=== PATIENT | female | born 1970 | race Caucasian/White ===

== ENCOUNTER 2017-04-11 15:08 | Emergency (ER) | payer OTHER ==
[~2017-04-11] VITALS: Ht 172.7 cm; Wt 116.3 kg
[~2017-04-11 15:08] MED LIST: CLIN150 PO; SULF-154 PO
[2017-04-11 15:12] VITALS: BP 146/96; PULSE 98; RESP 16; TEMP 97.7; O2SAT 99
--- NOTE | 2017-04-11 15:42 | PD ---
HPI Chief Complaint: Numbness/Tingling Time Seen by Provider: 15:20 Travel History International Travel<30 days: No Contact w/Intl Traveler<30days: No Traveled to known affect area: No History of Present Illness HPI This is a 47-year-old female who presents to the emergency department with several days of lightheadedness, feeling not herself, feeling a little bit like she is going to pass out worse with walking. She also reports that for the past 2 weeks the toes on her left foot on the bottom of her foot have been intermittently numb and today she woke up and numbness has been constant. She' s not had any weakness. She does have a dull headache. She denies any chest pain or trouble breathing. She is otherwise healthy. PFSH Past Medical History Hx Anticoagulant Therapy: No Diabetes: No Diminished Hearing: No Gastrointestinal Disorders: Yes (R/O ULCERATIVE COLITIS) Tetanus Vaccination: < 5 Years Influenza Vaccination: No ?: Not : 3 Para: 3 Past Surgical History Appendectomy: Yes (1989) Hysterectomy: Yes Tonsillectomy: Yes Social History Alcohol Use: No Tobacco Use: No Substance Use: No Allergies-Medications (Allergen,Severity, Reaction): Coded Allergies: No Known Allergies (Unverified , 04/11/17) Reported Meds & Prescriptions Reported Meds & Active Scripts Active Cleocin (Clindamycin HCl) 150 Mg Cap 300 Mg PO QID Septra Ds (Trimethoprim/Sulfamethoxazole) Tab 1 Tab PO BID 10 Days Review of Systems Except as stated in HPI: all other systems reviewed are Neg Physical Exam Narrative GENERAL:Well appearing, no acute distress SKIN: Focused skin assessment warm and dry. HEAD: Atraumatic. Normocephalic. EYES: Pupils equal and round. No injection or drainage. ENT: Moist mucous membranes NECK: Trachea midline. CARDIOVASCULAR: Regular rate and rhythm. No murmur appreciated. RESPIRATORY: Clear to auscultation. Breath sounds equal bilaterally. GASTROINTESTINAL: Abdomen soft, non-tender, nondistended. MUSCULOSKELETAL: No obvious deformities. NEUROLOGICAL: Awake and alert. No obvious cranial nerve deficits. No dysarthria or aphasia. No upper or lower extremity drift. No upper extremity ataxia. Visual frank intact. PSYCHIATRIC: Appropriate mood and affect; insight and judgment normal. Data Data Last Documented VS Vital Signs Date Time Temp Pulse Resp B/P Pulse Ox O2 Delivery O2 Flow Rate FiO2 04/11/17 15:12 97.7 98 16 146/[address] Brain W/O Iv Contrast(Rout) (04/11/17 ) Complete Blood Count With Diff (04/11/17 15:33) Comprehensive Metabolic Panel (04/11/17 15:33) ^ Insert Iv (04/11/17 15:33) Electrocardiogram (04/11/17 ) MDM Medical Decision Making Medical Screen Exam Complete: Yes Emergency Medical Condition: Yes Interpretation(s) Afebrile, mild tachycardia, mild hypertension Differential Diagnosis Arrhythmia, anemia, electrolyte abnormality, orthostatic hypotension, dehydration, stroke Narrative Course This is a 47-year-old female who presents to the emergency department with generalized malaise and lightheadedness for several days associated with numbness in the base of her left foot along her toes. Her symptoms are not consistent with a stroke and don't meet any anatomic distribution. She has a completely normal neurologic exam and is able to ambulate without difficulty. She was placed on a monitor and an IV was established. Plan for EKG, labs, and CT scan given the patient has headache. As long as these are reassuring I think patient can be discharged to follow-up with her primary care physician and I don't suspect an acute neurologic emergency. Jana Rice MD April 11, 2017 15:42
[2017-04-11] MEDS ORDERED: SODIUM CHLOR 0.9% 1000 ML INJ 1,000 ML IV ONE (15:45)
[2017-04-11 16:10] LABS: BASOPHIL # 0.4 TH/MM3 (0-0.2); BASOPHIL % 4.3 % (0.0-2.0); EOSINOPHIL # 0.2 TH/MM3 (0-0.4); EOSINOPHIL % 1.9 % (0.0-4.0); HEMATOCRIT 38.8 % (35.0-46.0); HEMO FLAGS DIFF FINAL; LYMPH % 27.4 % (9.0-44.0); LYMPHOCYTE # 2.8 TH/MM3 (1.0-4.8); MEAN CORPUSCULAR HEMOGLOBIN 26.4 PG (27.0-34.0); MEAN CORPUSCULAR HGB CONC 33.8 % (32.0-36.0); MONO % 8.3 % (0.0-8.0); NEUT % 58.1 % (16.0-70.0); PLATELET COUNT 336 TH/MM3 (150-450); RED BLOOD COUNT 4.98 MIL/MM3 (4.00-5.30); RED CELL DISTRIBUTION WIDTH 13.6 % (11.6-17.2); WHITE BLOOD COUNT 10.3 TH/MM3 (4.0-11.0)
[2017-04-11 16:22] LABS: CHLORIDE 101 MEQ/L (98-107); POTASSIUM 3.5 MEQ/L (3.5-5.1); SODIUM (NA) 138 MEQ/L (136-145)
--- NOTE | 2017-04-11 16:23 | RADHPO ---
EXAM DATE/TIME: 04/11/2017 16:03 [facility] COMPARISON: No previous studies available for comparison. INDICATIONS : Left lower extremity tingling, lightheaded and headache since this morning. RADIATION DOSE: 58.18 CTDIvol (mGy) MEDICAL HISTORY : None SURGICAL HISTORY : Tonsillectomy. Hysterectomy.Appendectomy.Orthopedic surgery. ENCOUNTER: Initial ACUITY: 1 day PAIN SCALE: 5/10 LOCATION: cranial TECHNIQUE: Multiple contiguous axial images were obtained of the head. Using automated exposure control and adj ustment of the mA and/or kV according to patient size, radiation dose was kept as low as reasonably a chievable to obtain optimal diagnostic quality images. FINDINGS: CEREBRUM: The ventricles are normal for age. No evidence of midline shift, mass lesion, hemorrhage or acute in farction. No extra-axial fluid collections are seen. POSTERIOR FOSSA: The cerebellum and brainstem are intact. The 4th ventricle is midline. The cerebellopontine angle i s unremarkable. EXTRACRANIAL: The visualized portion of the orbits is intact. SKULL: The calvaria is intact. No evidence of skull fracture. CONCLUSION: No acute intracranial disease. Joshua Guzmán MD on April 11, 2017 at 16:18 Board Certified Radiologist. This report was verified electronically.
[2017-04-11 16:25] LABS: ANION GAP 9 MEQ/L (5-15); BICARBONATE 28.5 MEQ/L (21.0-32.0); BLOOD UREA NITROGEN 12 MG/DL (7-18)
[2017-04-11 16:28] LABS: ALT (GPT) 28 U/L (10-53); AST (GOT) 20 U/L (15-37); GLOMERULAR FILTRATION RATE 89 ML/MIN (>89)
[2017-04-11 16:30] LABS: TOTAL BILIRUBIN ADULT 0.3 MG/DL (0.2-1.0)
[2017-04-11 16:31] LABS: ALKALINE PHOSPHATASE 108 U/L (45-117)
--- NOTE | 2017-04-11 16:53 | PD ---
Physical Exam Date Seen by Provider: April 11, 2017 Time Seen by Provider: 16:50 Narrative This 47-year-old female was seen initially by Dr. Bejarano. She has had some paresthesias in her left foot and says that the foot is numb today. She is also feeling lightheaded. EKG shows sinus rhythm. CT scan has been read as negative. On her blood work she does have a blood sugar of 190. Patient appears stable for discharge. I have notified her of the results of the blood sugar and encouraged her to follow up with Dr. Batista. Etiology of the paresthesias is not clear. Data Data Last Documented VS Vital Signs Date Time Temp Pulse Resp B/P Pulse Ox O2 Delivery O2 Flow Rate FiO2 04/11/17 15:12 97.7 98 16 146/[address] Brain W/O Iv Contrast(Rout) (04/11/17 ) Complete Blood Count With Diff (04/11/17 15:33) Comprehensive Metabolic Panel (04/11/17 15:33) ^ Insert Iv (04/11/17 15:33) Electrocardiogram (04/11/17 ) Troponin I (04/11/17 15:42) Sodium Chlor 0.9% 1000 Ml Inj (Ns 1000 M (04/11/17 15:45) Labs Laboratory Tests Test 04/11/17 15:45 White Blood Count 10.3 TH/MM3 Red Blood Count 4.98 MIL/MM3 Hemoglobin 13.1 GM/DL Hematocrit 38.8 % Mean Corpuscular Volume 78.0 FL Mean Corpuscular Hemoglobin 26.4 PG Mean Corpuscular Hemoglobin 33.8 % Concent Red Cell Distribution Width 13.6 % Platelet Count 336 TH/MM3 Mean Platelet Volume 8.2 FL Neutrophils (%) (Auto) 58.1 % Lymphocytes (%) (Auto) 27.4 % Monocytes (%) (Auto) 8.3 % Eosinophils (%) (Auto) 1.9 % Basophils (%) (Auto) 4.3 % Neutrophils # (Auto) 6.0 TH/MM3 Lymphocytes # (Auto) 2.8 TH/MM3 Monocytes # (Auto) 0.9 TH/MM3 Eosinophils # (Auto) 0.2 TH/MM3 Basophils # (Auto) 0.4 TH/MM3 CBC Comment DIFF FINAL Differential Comment Sodium Level 138 MEQ/L Potassium Level 3.5 MEQ/L Chloride Level 101 MEQ/L Carbon Dioxide Level 28.5 MEQ/L Anion Gap 9 MEQ/L Blood Urea Nitrogen 12 MG/DL Creatinine 0.70 MG/DL Estimat Glomerular Filtration 89 ML/MIN Rate Random Glucose 190 MG/DL Calcium Level 9.0 MG/DL Total Bilirubin 0.3 MG/DL Aspartate Amino Transf 20 U/L (AST/SGOT) Alanine Aminotransferase 28 U/L (ALT/SGPT) Alkaline Phosphatase 108 U/L Troponin I LESS THAN 0.02 NG/ML Total Protein 7.9 GM/DL Albumin 3.4 GM/DL [facility] Medical Record Reviewed: No Supervised Visit with CATHERINE: No Differential Diagnosis Differential includes neuropathy, radiculopathy, Narrative Course Patient does have elevated blood sugar which requires additional testing. She has a doctor in [facility] Dr. Batista. She is to follow-up with him Diagnosis Primary Impression: Hyperglycemia Additional Impression: Paresthesia Additional Instruction: Follow-up with Dr. Batista Med/Other Pt SpecificInfo: Prescription(s) given Disposition: DISCHARGE HOME Condition: Stable Chad Marcum MD April 11, 2017 16:53
--- NOTE | 2017-04-12 11:01 | EKG ---
Date Performed: 04/11/2017 Time Performed: 15:40:40 PTAGE: 47 years EKG: Sinus rhythm Leftward axis rSr'(V1) - probable normal variant QRS changes V3/V4 may be due to LVH but cannot rule out anterior infarct Left ventricular hypertrophy Inferior T wave changes are nonspecific Low QRS vo ltages in precordial leads Abnormal ECG NO PREVIOUS TRACING DOCTOR: Bob Pineda Interpretating Date/Time 04/12/2017 10:59:58
== END 2017-04-11 17:08 | disposition home or self-care (01) ==
LOC: PHED 15:08
DX: R73.9 Hyperglycemia, unspecified (principal); R20.9 Unspecified disturbances of skin sensation; R53.81 Other malaise; R42 Dizziness and giddiness; R20.0 Anesthesia of skin; R94.31 Abnormal electrocardiogram [ECG] [EKG]
CPT/HCPCS: 70450; 80053; 84484; 85025; 93005; 99284; J7030

== ENCOUNTER 2017-04-13 12:52 | Emergency (ER) | payer OTHER ==
[~2017-04-13] VITALS: Ht 175.3 cm; Wt 112.0 kg
[2017-04-13 12:55] VITALS: BP 197/100; PULSE 97; RESP 20; TEMP 98.4; O2SAT 97
[2017-04-13] MEDS ORDERED: SODIUM CHLOR 0.9% 1000 ML INJ 1,000 ML IV SCH (13:22)
--- NOTE | 2017-04-13 13:27 | PD ---
HPI Chief Complaint: Numbness/Tingling Time Seen by Provider: 13:10 Travel History International Travel<30 days: No Contact w/Intl Traveler<30days: No Traveled to known affect area: No History of Present Illness HPI This is a 47-year-old female who presents for evaluation of paresthesias. Symptoms started 2 days ago initially in her left foot. She was seen at [facility]. Since then she has had paresthesias develop in her left lower leg and her left proximal/forearm as well. She describes it as a "pins and needles" sensation which is constant. She does endorse a mild left-sided headache as well as generalized fatigue as well. She denies weakness, slurred speech, blurred vision, facial droop. She is planning on following up with her primary care physician next week. She has never had this problem before. Denies any significant past medical history. No other complaints. PFSH Past Medical History Hx Anticoagulant Therapy: No Anxiety: Yes Depression: Yes Diabetes: No Diminished Hearing: No Gastrointestinal Disorders: Yes (R/O ULCERATIVE COLITIS) Hypertension: Yes Medical other: Yes (Neuropathy) ?: Not : 3 Para: 3 Past Surgical History Appendectomy: Yes (1989) Hysterectomy: Yes Tonsillectomy: Yes Other Surgery: Yes (laminectomy) Social History Alcohol Use: No Tobacco Use: No Substance Use: No Allergies-Medications (Allergen,Severity, Reaction): Coded Allergies: No Known Allergies (Unverified , 04/13/17) Reported Meds & Prescriptions Reported Meds & Active Scripts Active No Active Prescriptions or Reported Medications Review of Systems Except as stated in HPI: all other systems reviewed are Neg Physical Exam Narrative GENERAL: Well-developed well-nourished female in no acute distress SKIN: Warm and dry. HEAD: Atraumatic. Normocephalic. EYES: Pupils equal and round reactive to light extraocular muscles are intact. No scleral icterus. No injection or drainage. ENT: No nasal bleeding or discharge. Mucous membranes pink and moist. NECK: Trachea midline. No JVD. CARDIOVASCULAR: Regular rate and rhythm. No murmur appreciated. RESPIRATORY: No accessory muscle use. Clear to auscultation. Breath sounds equal bilaterally. GASTROINTESTINAL: Abdomen soft, non-tender, nondistended. MUSCULOSKELETAL: No obvious deformities. No clubbing. No cyanosis. No edema. NEUROLOGICAL: Awake and alert. No obvious cranial nerve deficits. Motor grossly within normal limits. Normal speech. Normal sensation to sharp/light touch in the upper and lower extremities. Normal muscle strength in the upper and lower extremities. PSYCHIATRIC: Appropriate mood and affect; insight and judgment normal. Data Data Last Documented VS Vital Signs Date Time Temp Pulse Resp B/P Pulse Ox O2 Delivery O2 Flow Rate FiO2 04/13/17 12:55 98.4 97 20 197/100 97 Orders Thyroid Stimulating Hormone (04/13/17 13:19) Mri Brain W/O Contrast (04/13/17 ) Magnesium (Mg) (04/13/17 13:19) Ketorolac Inj (Toradol Inj) (04/13/17 13:30) Sodium Chlor 0.9% 1000 Ml Inj (Ns 1000 M (04/13/17 13:22) Labs Laboratory Tests Test 04/13/17 13:20 Magnesium Level 2.2 MG/DL Thyroid Stimulating Hormone 1.660 uIU/ML 3rd Gen [facility] Medical Decision Making Medical Screen Exam Complete: Yes Emergency Medical Condition: Yes Medical Record Reviewed: Yes Differential Diagnosis Peripheral neuropathy, herniated nucleus pulposus, multiple sclerosis, spinal stenosis, CVA, TIA, electrolyte disturbance, hypothyroidism, peripheral vascular disease Narrative Course 47-year-old female who has been experiencing a pins and needle sensation in her left foot for the past 2 days, now developed similar sensation in the left lower leg and proximal left arm. She has had none motor disturbance or other neurologic symptom. She has had fatigue and a left-sided headache. She has a Neurologic examination. She was seen at [facility] about this issue 2 days ago and had essentially an unremarkable workup, her blood sugar was elevated. Plan is for MRI to essentially rule out CVA, we will also check her TSH and magnesium levels. BMP, CBC, cardiac enzymes reviewed from 2 days ago. Discussed with my attending who agrees with plan of care. MRI of the brain is negative, magnesium and TSH levels are normal. Upon examination the patient's headache is improved. Plan is for outpatient follow- up for further evaluation of these paresthesias. Diagnosis Primary Impression: Paresthesia Additional Instructions: Follow-up close with primary care physician. Return for any acutely new or worsening symptoms. Med/Other Pt SpecificInfo: No Change to Meds Scripts No Active Prescriptions or Reported Meds Disposition: 01 DISCHARGE HOME Condition: Stable Dory,Simba P. PA April 13, 2017 13:27
[2017-04-13] MEDS ORDERED: KETOROLAC TROMETHAMINE 30 MG/ML (IVP) VIAL IV PUSH ONE (13:30)
[2017-04-13 14:03] LABS: MAGNESIUM 2.2 MG/DL (1.5-2.5)
--- NOTE | 2017-04-13 14:39 | RADRPT ---
EXAM DATE/TIME: 04/13/2017 14:02 [facility] COMPARISON: No previous studies available for comparison. INDICATIONS : CVA. Left sided weakness. MEDICAL HISTORY : None. SURGICAL HISTORY : Hysterectomy. Tonsillectomy. Appendectomy. ENCOUNTER: Initial ACUITY: 1 day PAIN SCORE: 0/10 LOCATION: Head. TECHNIQUE: Multiplanar, multisequence MRI of the brain was performed without contrast. FINDINGS: CEREBRUM: The ventricles are normal for age. No evidence of midline shift, mass lesion, hemorrhage or acute in farction. No extraaxial fluid collections are seen. The pituitary gland and suprasellar cistern are normal in configuration. WHITE MATTER: No significant signal abnormalities are seen in the white matter. POSTERIOR FOSSA: The cerebellum and brainstem are intact. The 4th ventricle is midline. The cerebellopontine angle is unremarkable. The cerebellar tonsils are normal in position. DIFFUSION IMAGING: No focal areas of restricted diffusion are seen. No evidence of acute infarction. EXTRACRANIAL: The visualized portions of the orbits and paranasal sinuses are unremarkable. CONCLUSION: Negative exam. Luiz Lopez MD on April 13, 2017 at 14:37 Board Certified Radiologist. This report was verified electronically.
[2017-04-13 15:35] VITALS: BP 140/81; TEMP 97.8
== END 2017-04-13 15:35 | disposition home or self-care (01) ==
LOC: NEPC 12:52
DX: R20.2 Paresthesia of skin (principal); I10 Essential (primary) hypertension; R73.9 Hyperglycemia, unspecified; G62.9 Polyneuropathy, unspecified
CPT/HCPCS: 70551; 83735; 84443; 96361; 96374; 99283; J1885; J7030

== ENCOUNTER → 2018-04-11 | Outpatient (CLI) | payer OTHER ==
--- NOTE | 2018-04-11 14:32 | RADRPT ---
EXAM DATE/TIME: 04/11/2018 12:55 [facility] COMPARISON: No previous studies available for comparison. INDICATIONS : Tremors and problems with balance. DOSE: 5 mCi Ioflupane Iodine-123 in 2.5 ml total volume MEDICATION(S): 130 mg Potasium Iodine PO one hour prior to injection SPECT IMAGIN.5 Hrs. RADIATION DOSE: 30.27 CTDIvol (mGy) MEDICAL HISTORY : Hypertension. Diabetes mellitus type 2. SURGICAL HISTORY : Hysterectomy. Appendectomy. Tonsillectomy. Bilateral knees. ENCOUNTER: Initial ACUITY: 1 day PAIN SCALE: 0/10 LOCATION: cranial TECHNIQUE: SPECT imaging of the brain was performed in sagittal, axial and coronal planes. Attenuation correctio n was performed with computed tomography and both the attenuation correction and non-attenuation sreedhar ected data sets were reviewed. FINDINGS: There is normal biodistribution of radionuclide with symmetric crescent-shaped areas of activity are in the striatum which appears distinct relative to the surrounding brain tissue. CONCLUSION: Normal exam. Luiz Lopez MD on April 11, 2018 at 14:29 Board Certified Radiologist. This report was verified electronically.
== END ==
LOC: HRAD 08:21
PROVIDERS: ATTEND Specialist
DX: G25.2 Other specified forms of tremor (principal); R25.1 Tremor, unspecified
CPT/HCPCS: 78607; A9584